=== PATIENT | female | born 1975 | race Two or more races ===

== ENCOUNTER 2020-04-25 08:41 | Observation (INO) | payer MEDICAID ==
[~2020-04-25] VITALS: Ht 165.1 cm; Wt 104.6 kg
[2020-04-25] VITALS (23 sets, daily range): BP systolic 105–130; BP diastolic 65–78
[~2020-04-25 08:41] MED LIST: HYDR-3565 PO
[2020-04-25] MEDS ORDERED: morphine 4 MG/ML inj SYRINge IM ONE (09:25)
[2020-04-25] MEDS ORDERED: ondansetron 4mg rapidly disintigrating tab PO ONE (09:25)
[2020-04-25] MEDS ORDERED: iohexol 300mg/ml 100ml inj. ONE (09:37)
[2020-04-25 09:41] LABS: BASOPHILS # (AUTO) 0.1 X10'3 (0-0.2); BASOPHILS % (AUTO) 0.9 % (0-1); EOSINOPHILS # (AUTO) 0.1 X10'3 (0-0.9); EOSINOPHILS % (AUTO) 1.3 % (0-6); HEMATOCRIT 31.9 % (35.0-45.0); HEMOGLOBIN 9.8 g/dl (12.0-16.0); LYMPHOCYTES # (AUTO) 1.7 X10'3 (1.1-4.8); LYMPHOCYTES % (AUTO) 28.5 % (21-51); MEAN CORPUSCULAR HEMOGLOBIN 20.9 PG (27.0-31.0); MEAN CORPUSCULAR HGB CONC 30.6 g/dL (33.0-36.5); MEAN CORPUSCULAR VOLUME 68.1 FL (78-98); MEAN PLATELET VOLUME 8.6 FL (7.4-10.4); MONOCYTES # (AUTO) 0.6 X10'3 (0-0.9); NEUTROPHILS # (AUTO) 3.4 X10'3 (1.8-7.7); NEUTROPHILS % (AUTO) 58.3 % (42-75); PLATELET COUNT 203 X10'3 (140-440); RED BLOOD COUNT 4.69 X10'6 (4.20-5.60); RED CELL DISTRIBUTION WIDTH 33.7 % (11.5-14.5); WHITE BLOOD COUNT 5.9 X10'3 (4.5-11.0)
[2020-04-25 09:42] LABS: URINE HCG NEGATIVE (NEG)
[2020-04-25 09:43] LABS: CLARITY,URINE CLOUDY (Clear); COLOR,URINE YELLOW (Yellow); GLUCOSE, URINE NEGATIVE (Neg); KETONES,URINE NEGATIVE (Neg); LEUKOCYTE ESTERASE ,URINE NEGATIVE (Neg); NITRITES, URINE NEGATIVE (Neg); OCCULT BLOOD,URINE LARGE (Neg); PH,URINE 7.5 (4.8-8.0); PROTEIN,URINE TRACE mg/dl (Neg); UROBILINOGEN,URINE 0.2 E.U/dL (0.2-1.0)
[2020-04-25 09:44] LABS: UA COLLECTION TYPE CLN CATCH MIDSTREAM
[2020-04-25 09:50] LABS: ALANINE AMINOTRANSFERASE 27 U/L (12-78); ALBUMIN 3.2 G/DL (3.4-5.0); ALBUMIN/GLOBULIN RATIO 0.8 (1.1-1.5); ALKALINE PHOSPHATASE 53 IU/L (46-116); ANION GAP 7 (8-16); ASPARTATE AMINO TRANSFERASE 26 U/L (10-37); BILIRUBIN,TOTAL 0.2 MG/DL (0.1-1.0); BLOOD UREA NITROGEN 9 MG/DL (7-18); BUN/CREATININE RATIO 13.6 (6.6-38.0); CALCIUM 8.5 MG/DL (8.5-10.1); CHLORIDE 104 MMOL/L (99-107); CREATININE 0.66 MG/DL (0.40-0.90); GLUCOSE 125 MG/DL (70-104); LIPASE 186 U/L (73-393); POTASSIUM 4.1 MMOL/L (3.5-5.1); SODIUM 139 MMOL/L (135-145); TOTAL CARBON DIOXIDE 27.6 MMOL/L (24-32); TOTAL PROTEIN 7.4 G/DL (6.4-8.2); eGFR > 90 ML/MIN
[2020-04-25 09:54] LABS: BACTERIA,URINE FEW /HPF (Neg); RBC,URINE TNTC /HPF (0-2); SQUAMOUS EPITHELIAL CELL,UR FEW /LPF (FEW)
[2020-04-25 10:07] LABS: ANISOCYTOSIS 2+; LARGE PLATELETS FEW; PLATELET ESTIMATE NORMAL
[2020-04-25 10:08] LABS: HYPOCHROMASIA 1+
[2020-04-25] MEDS ORDERED: neostigmine methylsulfate 1 MG/ML 10ml vial ONE (12:12)
[2020-04-25] MEDS ORDERED: sevoflurane 250ml liquid IH ONE (12:12)
[2020-04-25] MEDS ORDERED: fentaNYL /PF 50mcg/ml 5ml ampule ONE (12:14)
[2020-04-25] MEDS ORDERED: midazolam 2 mg/2 ml injection ONE (12:14)
[2020-04-25] MEDS ORDERED: LIDOcaine 2% (20mg/ml) 5ml vial ONE (12:15)
[2020-04-25] MEDS ORDERED: propofol inj 20 ML IV ONE (12:15)
[2020-04-25] MEDS ORDERED: FERR325T29 PO (12:21)
[2020-04-25] MEDS ORDERED: NORG1TAB78 PO (12:21)
[2020-04-25] MEDS ORDERED: BUPIVAcaine/PF 2.5 mg/ml (0.25%) 30ml vial ONE (12:30)
[2020-04-25] MEDS ORDERED: ceFAZolin 1000mg inj ONE ×2 (13:05)
[2020-04-25] MEDS ORDERED: rocuronium 10mg/ml inj IV ONE (13:06)
[2020-04-25] MEDS ORDERED: morphine 4 MG/ML inj SYRINge IV PRN (13:25)
[2020-04-25] MEDS ORDERED: meperidine/PF 25mg/ml syringe IV PRN ×2 (13:25)
[2020-04-25] MEDS ORDERED: ringers solution, lacted 1,000 ML IV SCH (13:25)
[2020-04-25] MEDS ORDERED: morphine 2 MG/ML inj. syringe IV PRN (13:25)
[2020-04-25] MEDS ORDERED: ondansetron/PF 4mg/2ml inj IV PRN ×2 (13:25→15:15)
[2020-04-25] MEDS ORDERED: proCHLORperazine 10 MG/2 ml inj IV PRN (13:25)
[2020-04-25] MEDS ORDERED: ondansetron/PF 4mg/2ml inj ONE (13:44)
[2020-04-25] MEDS ORDERED: dexamethasone sod phosphate 4mg/ml inj. ONE (13:44)
[2020-04-25] MEDS ORDERED: ketorolac trometh. 30mg/ml inj. ONE (13:45)
[2020-04-25] MEDS ORDERED: glycopyrrolate 0.2mg/ml inj ONE (13:52)
--- NOTE | 2020-04-25 14:00 | NUR ---
Received from OR via BED , accompanied by Anesthesiologist DR GARCIA and report given by Anesthesiolgist. PATIENT WAKING UP, PAINFUL AT TIMES SEE EMAR, V/S WNL, CSM INTACT, 20G PIV RUE, BANDAIDS TO ABDOMEN CDI.
[2020-04-25] MEDS: meperidine/PF 25mg/ml syringe IV PRN ×3 (14:18→15:28)
[2020-04-25] MEDS ORDERED: HYDROcodone/acetaminophen 10/325mg tab PO ONE ×2 (14:45→16:00)
--- NOTE | 2020-04-25 15:30 | NUR ---
PATIENT A&OX4, PAINFUL AT TIMES SEE EMAR-PATIENT BEING ADMITTED FOR OBSERVATION, V/S WNL, CSM INTACT, 20G PIV RUE, BANDAIDS TO ABDOMEN CDI. PATIENT TAKEN TO 348B WITH ALL BELONGINGS AND HOOKED UP TO MONITORS IN ROOM AND REPORT GIVEN TO RN WHO HAS TAKEN OVER PATIENT CARE.
--- NOTE | 2020-04-25 15:35 | NUR ---
Received report from recovery awaiting pt arrival.
[2020-04-25] MEDS: sod chloride 0.9% 10ml flush syringe IV SCH (17:33)
--- NOTE | 2020-04-25 18:22 | NUR ---
Problems reprioritized. Patient report given, questions answered & plan of care reviewed with Ama. BETH.
--- NOTE | 2020-04-25 18:30 | NUR ---
Patient in room [facility]. I have received report from PETER CAMPOS and had the opportunity to ask questions and assume patient care.
[2020-04-25] MEDS: HYDROcodone/acetaminophen 5mg/325mg tablet PO PRN (22:31)
[2020-04-26] VITALS: BP 115/73
[2020-04-26] MEDS: sod chloride 0.9% 10ml flush syringe IV SCH ×2 (00:47→09:03)
[2020-04-26] MEDS: HYDROcodone/acetaminophen 5mg/325mg tablet PO PRN ×3 (02:46→13:52)
[2020-04-26 04:00] VITALS: BP 118/67
--- NOTE | 2020-04-26 06:08 | NUR ---
Problems reprioritized. Patient report given, questions answered & plan of care reviewed with PETER CAMPOS.
--- NOTE | 2020-04-26 06:30 | NUR ---
Patient in room [facility]. I have received report from BETH Serrato and had the opportunity to ask questions and assume patient care.
[2020-04-26 07:00] VITALS: BP 107/61
[2020-04-26] MEDS ORDERED: FLU VACC QS2020-21(6MOS UP)/PF 60 MCG/0.5 ML SYRINGE IMVAC ONE (10:00)
[2020-04-26 11:00] VITALS: BP 111/69
[2020-04-26] MEDS ORDERED: HYDR-4383 PO (13:23)
== END 2020-04-26 14:15 | disposition home or self-care (01) ==
LOC: ER 08:42 → SUR 3N 15:21
PROVIDERS: ADMIT Surgery; ATTEND Surgery
DX: K43.0 Incisional hernia with obstruction, without gangrene (principal); K66.0 Peritoneal adhesions (postprocedural) (postinfection); K44.9 Diaphragmatic hernia without obstruction or gangrene; K57.90 Diverticulosis of intestine, part unspecified, without perforation or abscess without bleeding; Z23 Encounter for immunization
CPT/HCPCS: 36415; 49657; 74177; 80053; 81001; 81025; 83690; 85025; 87081; 87088; 90471; 96372; 96374; 96376; 99285; C1758; C1781; G0378; J0690; J1100; J1885; J2001; J2175; J2250; J2270; J2405; J2704; J2710; J3010; J3490; J7120; Q2039; Q9967; 85008; A4215; A4618; A7000

== ENCOUNTER 2021-02-10 01:34 | Emergency (ER) | payer MEDICAID, OTHER ==
[~2021-02-10] VITALS: Ht 157.5 cm; Wt 100.0 kg
[~2021-02-10 01:34] MED LIST changes: +FERR325T29 PO; -HYDR-3565 PO; +HYDR-4383 PO; +NORG1TAB78 PO
[2021-02-10] MEDS ORDERED: ATOR20TA66 PO (03:28)
[2021-02-10] MEDS ORDERED: METF-436 PO (03:28)
--- NOTE | 2021-02-10 03:34 | NUR ---
Patient resting in stretcher with even and unlabored respirations. States that thruoghout the day she will have instances where she feels she cannot catch her breath. Also complaining of numbness and pain extending from left side of head down to left side of her chest. States she was seen at [facility] for this a week or so ago and they recommended just taking daily aspirin. She also complains of feeling a burning sensation in her stomach stating her abdomen hasn't seemed right since she had her hernia repair.
[2021-02-10] MEDS ORDERED: HYDROcodone/acetaminophen 10/325mg tab PO ONE (03:55)
--- NOTE | 2021-02-10 04:20 | NUR ---
Faxed over request to [facility] for patient's records on her recent visit. supervisor corduroy cutting at [facility] also called and made aware of request.
[2021-02-10 04:25] LABS: BASOPHILS % (AUTO) 0.6 % (0-1); EOSINOPHILS # (AUTO) 0.1 X10'3 (0-0.9); EOSINOPHILS % (AUTO) 1.4 % (0-6); HEMATOCRIT 39.1 % (35.0-45.0); HEMOGLOBIN 12.4 g/dl (12.0-16.0); LYMPHOCYTES # (AUTO) 2.3 X10'3 (1.1-4.8); LYMPHOCYTES % (AUTO) 33.2 % (21-51); MEAN CORPUSCULAR HEMOGLOBIN 25.5 PG (27.0-31.0); MEAN CORPUSCULAR HGB CONC 31.8 g/dL (33.0-36.5); MEAN PLATELET VOLUME 9.4 FL (7.4-10.4); MONOCYTES # (AUTO) 0.8 X10'3 (0-0.9); MONOCYTES % (AUTO) 11.2 % (2-12); NEUTROPHILS # (AUTO) 3.8 X10'3 (1.8-7.7); NEUTROPHILS % (AUTO) 53.6 % (42-75); PLATELET COUNT 211 X10'3 (140-440); RED BLOOD COUNT 4.88 X10'6 (4.20-5.60); RED CELL DISTRIBUTION WIDTH 20.7 % (11.5-14.5)
[2021-02-10 04:45] LABS: ALANINE AMINOTRANSFERASE 62 U/L (12-78); ALBUMIN 3.7 G/DL (3.4-5.0); ALBUMIN/GLOBULIN RATIO 0.9 (1.1-1.5); ALKALINE PHOSPHATASE 79 IU/L (46-116); ANION GAP 11 (8-16); ASPARTATE AMINO TRANSFERASE 45 U/L (10-37); BILIRUBIN,TOTAL 0.2 MG/DL (0.1-1.0); BLOOD UREA NITROGEN 10 MG/DL (7-18); BUN/CREATININE RATIO 16.7 (6.6-38.0); CALCIUM 8.7 MG/DL (8.5-10.1); CHLORIDE 107 MMOL/L (99-107); GLUCOSE 132 MG/DL (70-104); POTASSIUM 3.9 MMOL/L (3.5-5.1); SODIUM 142 MMOL/L (135-145); TOTAL CARBON DIOXIDE 23.9 MMOL/L (24-32); TOTAL PROTEIN 7.7 G/DL (6.4-8.2); eGFR > 90 ML/MIN
[2021-02-10 06:00] VITALS: BP 125/73
== END 2021-02-10 06:11 | disposition home or self-care (01) ==
LOC: ER 01:34
DX: R00.2 Palpitations (principal); R07.9 Chest pain, unspecified; E78.00 Pure hypercholesterolemia, unspecified; D64.9 Anemia, unspecified; E11.9 Type 2 diabetes mellitus without complications; Z79.899 Other long term (current) drug therapy
CPT/HCPCS: 80053; 84484; 85025; 93005; 99285

== ENCOUNTER 2021-02-13 14:54 | Emergency (ER) | payer OTHER ==
[~2021-02-13] VITALS: Ht 157.5 cm; Wt 100.0 kg
[~2021-02-13 14:54] MED LIST changes: +ATOR20TA66 PO; +METF-436 PO
[2021-02-13 15:40] LABS: BASOPHILS # (AUTO) 0.1 X10'3 (0-0.2); BASOPHILS % (AUTO) 0.7 % (0-1); EOSINOPHILS # (AUTO) 0.1 X10'3 (0-0.9); EOSINOPHILS % (AUTO) 0.9 % (0-6); HEMOGLOBIN 11.7 g/dl (12.0-16.0); LYMPHOCYTES # (AUTO) 1.8 X10'3 (1.1-4.8); LYMPHOCYTES % (AUTO) 22.4 % (21-51); MEAN CORPUSCULAR HEMOGLOBIN 25.3 PG (27.0-31.0); MEAN CORPUSCULAR HGB CONC 31.7 g/dL (33.0-36.5); MEAN CORPUSCULAR VOLUME 79.7 FL (78-98); MONOCYTES # (AUTO) 0.9 X10'3 (0-0.9); MONOCYTES % (AUTO) 11.3 % (2-12); NEUTROPHILS # (AUTO) 5.3 X10'3 (1.8-7.7); NEUTROPHILS % (AUTO) 64.7 % (42-75); PLATELET COUNT 220 X10'3 (140-440); RED BLOOD COUNT 4.64 X10'6 (4.20-5.60); RED CELL DISTRIBUTION WIDTH 19.4 % (11.5-14.5); WHITE BLOOD COUNT 8.1 X10'3 (4.5-11.0)
[2021-02-13 15:42] LABS: URINE HCG NEGATIVE (NEG)
[2021-02-13 15:43] LABS: CLARITY,URINE SLIGHTLY CLOUDY (Clear); COLOR,URINE STRAW (Yellow); GLUCOSE, URINE NEGATIVE (Neg); KETONES,URINE NEGATIVE (Neg); LEUKOCYTE ESTERASE ,URINE NEGATIVE (Neg); NITRITES, URINE NEGATIVE (Neg); OCCULT BLOOD,URINE TRACE-LYSED (Neg); PROTEIN,URINE NEGATIVE (Neg); UROBILINOGEN,URINE 0.2 E.U/dL (0.2-1.0)
[2021-02-13 15:46] LABS: UA COLLECTION TYPE CLN CATCH MIDSTREAM
[2021-02-13 15:52] LABS: SQUAMOUS EPITHELIAL CELL,UR FEW /LPF (FEW)
[2021-02-13 15:53] LABS: BACTERIA,URINE NONE SEEN /HPF (Neg); RBC,URINE NONE SEEN /HPF (0-2); WBC,URINE 0-4 /HPF (0-4)
[2021-02-13 15:57] LABS: ALANINE AMINOTRANSFERASE 72 U/L (12-78); ALBUMIN 3.9 G/DL (3.4-5.0); ALKALINE PHOSPHATASE 82 IU/L (46-116); ANION GAP 7 (8-16); ASPARTATE AMINO TRANSFERASE 61 U/L (10-37); BILIRUBIN,TOTAL 0.3 MG/DL (0.1-1.0); BLOOD UREA NITROGEN 9 MG/DL (7-18); BUN/CREATININE RATIO 15.3 (6.6-38.0); CHLORIDE 106 MMOL/L (99-107); CREATININE 0.59 MG/DL (0.40-0.90); GLUCOSE 104 MG/DL (70-104); LIPASE 142 U/L (73-393); POTASSIUM 3.8 MMOL/L (3.5-5.1); SODIUM 139 MMOL/L (135-145); TOTAL PROTEIN 7.9 G/DL (6.4-8.2); eGFR > 90 ML/MIN
[2021-02-13 16:14] LABS: ANISOCYTOSIS 2+; HYPOCHROMASIA 1+; MICROCYTOSIS 1+; PLATELET ESTIMATE NORMAL; SPHEROCYTES FEW
[2021-02-13 16:15] LABS: ELLIPTOCYTES FEW; SCHISTOCYTES FEW; TEAR DROP CELLS 1+
[2021-02-13 16:17] VITALS: BP 120/88
[2021-02-13] MEDS ORDERED: pantoprazole 40 MG vial IV ONE (19:40)
[2021-02-13] MEDS ORDERED: LIDOcaine Viscous 15ml cup MM ONE (19:40)
[2021-02-13] MEDS ORDERED: mag hydrox/Alum hydrox/simeth 30ml oral suspension PO ONE (19:40)
[2021-02-13] MEDS ORDERED: iohexol 300mg/ml 100ml inj. ONE (20:01)
[2021-02-13] MEDS ORDERED: PANT-47 PO (21:22)
== END 2021-02-13 21:56 | disposition home or self-care (01) ==
LOC: ER 14:54
DX: K44.9 Diaphragmatic hernia without obstruction or gangrene (principal); R10.84 Generalized abdominal pain; E78.00 Pure hypercholesterolemia, unspecified; E11.9 Type 2 diabetes mellitus without complications; Z86.2 Personal history of diseases of the blood and blood-forming organs and certain disorders involving the immune mechanism; Z98.890 Other specified postprocedural states; Z79.899 Other long term (current) drug therapy
CPT/HCPCS: 36415; 74177; 80053; 81001; 81025; 83690; 85008; 85025; 93005; 96374; 99285; C9113; Q9967